=== PATIENT | female | born 1995 | race Two or more races ===

== ENCOUNTER 2024-08-27 03:19 | Emergency (ER) | payer MEDICAID, OTHER ==
[~2024-08-27] VITALS: Ht 162.6 cm; Wt 70.4 kg
[2024-08-27 04:45] LABS: Urine Bacteria FEW /hpf (None Seen); Urine Blood Negative /uL (Negative); Urine Clarity Clear (Clear); Urine Color Yellow (Yellow); Urine Mucus FEW (None Seen); Urine Protein, UAD TRACE (Negative); Urine Specific Gravity 1.035 (1.001-1.035); Urine Squamous Epithelial Cell FEW /hpf (<5); Urine Urobilinogen Normal (Negative); Urine WBC < 1 /HPF (0-5)
--- NOTE | 2024-08-27 05:45 | PRN ---
Misceleneous Note Note Note RAPID MEDICAL ASSESSMENT NOTE: [age] yo female presents right hip pain x3 months. Patient came in today because now she has pain in her left lower quadrant, right upper quadrant. She denies any significant past medical history. Physical exam: General: Awake, alert and oriented. No acute distress. Skin: Skin in warm, dry. HEENT: The head is normocephalic and atraumatic. Conjunctivae are clear without exudates or hemorrhage. Sclera is non-icteric. Neck: Normal range of motion. No JVD. Respiratory: No signs of respiratory distress. No Stridor. Abdomen: Soft, no peritoneal signs. Plan: Lab studies, right hip x-ray, pelvic ultrasound. Patient has declined pain medication at this time. Sign out to oncoming provider pending full evaluation and re-assessment. CHRIS GIRON MD Aug 27, 2024 05:45
[2024-08-27 05:59] LABS: Basophils # (auto) 0 10 ^3/uL (0-0.2); Basophils % (auto) 0.7 % (0.0-2.0); Eosinophils # (auto) 0.1 10 ^3/uL (0-0.8); Eosinophils % (auto) 1.3 % (0.0-7.0); Hematocrit 42.1 % (36.0-46.0); Hemoglobin 14.3 g/dL (12.2-16.2); Lymphocytes # (auto) 1.8 10 ^3/uL (0.4-5.4); Lymphocytes % (auto) 27.5 % (10.0-50.0); Mean Corpuscular Hemoglobin 29.4 pg (28.0-32.0); Mean Corpuscular Hgb Conc. 33.8 g/dL (32.0-36.0); Mean Corpuscular Volume 86.9 fL (80.0-100.0); Monocytes # (auto) 0.5 10 ^3/uL (0-1.3); Monocytes % (auto) 7.4 % (0.0-12.0); Neutrophils # (auto) 4.1 10 ^3/uL (1.6-8.6); Neutrophils % (auto) 63.1 % (37.0-80.0); Nucleated Red Blood Cells % 0.1 %; Platelet Count (auto) 253 10^3/uL (140-450); Red Blood Cells 4.85 10^6/uL (4.0-5.20); Red Cell Distribution Width 13.8 % (11.8-14.3); White Blood Cell 6.5 10^3/uL (4.4-10.8)
[2024-08-27 06:18] LABS: Alanine Aminotransferase 16 U/L (7-40); Alkaline Phosphatase 59 U/L (46-116); Calcium 9.8 mg/dL (8.7-10.4); Carbon Dioxide 25 mmol/L (20-31); Chloride 105 mmol/L (98-107)
[2024-08-27 06:19] LABS: Albumin 4.9 g/dL (3.2-4.8); Anion Gap 9 (5-15); Aspartate Aminotransferase 11 U/L (13-40); BUN/Creatinine Ratio 13.2 (10.0-20.0); Bilirubin, Total 0.5 mg/dL (0.2-1.0); Blood Urea Nitrogen 10 mg/dL (9-23); Glucose 105 mg/dL (74-106); Sodium 139 mmol/L (136-145); Total Protein 7.3 g/dL (5.7-8.2)
--- NOTE | 2024-08-27 06:28 | ED.PDOC ---
GI ASSESSMENT HPI Comments 29-year-old female presents with a chief complaint of pelvic pain/abdominal pain with associated soft stools x 3 months intermittently. Patient states that the sensation is pressure-like, nonradiating, and has been intermittent in timing. Patient mentions also that her stools have been softer than typical for her baseline. Patient reports that the pain began spontaneously and denies any injuries or trauma prior to onset of symptoms. Patient mentions that she has been taking Fiber supplements to attempt to relieve her symptoms. Patient denies seeing a doctor in the last 3 months for this issue. Patient endorses alcohol use, and smokes. LMP 07/26/2024. Denies any nausea, vomiting, or diarrhea. Chief Complaint: Abdominal Pain Time Seen by MD: 05:46 Reviewed Notes: Medications, Allergies Allergies: Coded Allergies: No Known Drug Allergy (Verified Allergy, Unknown, 08/27/24) Information Source: Patient Mode of Arrival: Ambulatory Timing: Months Duration: Since onset Prehospital treatment: None Quality: Other (Pressure) Vomitus: None Stool: Loose Severity: Moderate Recent: None Recent Hx of: None Pain Location: Suprapubic Associated sign and symptoms: Abdominal Pain Past Medical History PAST MEDICAL HISTORY: Denies Surgical History: Denies all surgeries [employer] History: Denies all [employer] Hx Family History Family History: Reviewed,noncontributory to illness Social History Smoker: Other Alcohol: Occasionally Drugs: Denies Drug Use Lives In: Home Constitutional: denies: chills, diaphoresis, fatigue, fever, malaise, sweats, weakness, others EENTM: denies: blurred vision, double vision, ear bleeding, ear discharge, ear drainage, ear pain, ear ringing, eye pain, eye redness, hearing loss, mouth pain, mouth swelling, nasal discharge, nose bleeding, nose congestion, nose pain, photophobia, tearing, throat pain, throat swelling, voice changes, others Respiratory: denies: cough, hemoptysis, orthopnea, SOB at rest, shortness of breath, SOB with excertion, stridor, wheezing, others Cardiovascular: denies: chest pain, dizzy spells, diaphoresis, Dyspnea on exertion, edema, irregular heart beat, left arm pain, lightheadedness, palpitations, PND, syncope, others Gastrointestinal: reports: abdominal pain; denies: abdomen distended, blood streaked bowels, constipated, diarrhea, dysphagia, difficulty swallowing, hematemesis, melena, nausea, poor appetite, poor fluid intake, rectal bleeding, rectal pain, vomiting, others Genitourinary: denies: abnormal vagina bleeding, burning, dyspareunia, dysuria, flank pain, frequency, hematuria, incontinence, pain, , vagina discharge, urgency, others Neurological: denies: dizziness, fainting, headache, left sided numbness, left sided weakness, numbness, paresthesia, pre-existing deficit, right sided numbness, right sided weakness, seizure, speech problems, tingling, tremors, weakness, others Musculoskeletal: denies: back pain, gout, joint pain, joint swelling, muscle pain, muscle stiffness, neck pain, others Integumetry: denies: bruises, change in color, change in hair/nails, dryness, laceration, lesions, lumps, rash, wounds, others Allergic/Immunocompromised: denies: Difficulty Healing, Frequent Infections, Hives, Itching, others Hematologic/Lymphatic: denies: anemia, blood clots, easy bleeding, easy bruising, swollen glands, others Endocrine: denies: excessive hunger, excessive sweating, excessive thirst, excessive urination, flushing, intolerance to cold, intolerance to heat, unexplained weight gain, unexplained weight loss, others Psychiatric: denies: anxiety, bipolar disorder, depression, hopeless, panic disorder, schizophrenia, sleepless, suicidal, others All Other Systems: Reviewed and Negative Physical Exam General Appearance: Mild Distress, Normal HEENT: Normal ENT Inspection, Pharynx Normal, TMs Normal Neck: Full Range of Motion, Non-Tender, Normal, Normal Inspection Respiratory: Chest Non-Tender, Lungs Clear, No Accessory Muscle Use, No Respiratory Distress, Normal Breath Sounds Cardiovascular: No Edema, No JVD, No Murmur, No Gallop, Normal Peripheral Pulses, Regular Rate/Rhythm Breast Exam: Deferred Gastrointestinal: No Pulsatile Mass, Normal Bowel Sounds, Soft, Tenderness (OVERLYING THE RIGHT ILLAC BONE AND UNDERNEATH THE ILLIAC BONE) Genitalia: Deferred Pelvic: Deferred Rectal: Deferred Extremities: No calf tenderness, Normal capillary refill, Normal inspection, Normal range of motion, Non-tender, No pedal edema Musculoskeletal : Apperance: Normal Neurologic: Alert, suction plate roller hand II-XII nml as Tested, No Motor Deficits, Normal Affect, Normal Mood, No Sensory Deficits Cerebellar Function: Normal Reflexes: Normal Skin: Dry, Normal Color, Warm Lymphatic: No Adenopathy Was a procedure done? Was a procedure done?: No GI differential Dx Differential Diagnosis: Constipation, Diverticular disease, Ectopic , Gastroenteritis, Ischemic Bowel, Ovarian cyst/torsion, UTI, Hypovolemia X-Ray, Labs, Meds, VS Vital Signs Date Time Temp Pulse Resp B/P (MAP) Pulse Ox O2 Delivery O2 Flow Rate FiO2 08/27/24 03:50 98.2 88 18 135/78 (97) 99 Lab Test 08/27/24 05:47 08/27/24 04:15 Range/Units White Blood Count 6.5 4.4-10.8 10^3/uL Red Blood Count 4.85 4.0-5.20 10^6/uL Hemoglobin 14.3 12.2-16.2 g/dL Hematocrit 42.1 36.0-46.0 % Mean Corpuscular Volume 86.9 80.0-100.0 fL Mean Corpuscular Hemoglobin 29.4 28.0-32.0 pg Mean Corpuscular Hemoglobin Concent 33.8 32.0-36.0 g/dL Red Cell Distribution Width 13.8 11.8-14.3 % Platelet Count 253 140-450 10^3/uL Mean Platelet Volume 9.1 6.9-10.8 fL Neutrophils (%) (Auto) 63.1 37.0-80.0 % Lymphocytes (%) (Auto) 27.5 10.0-50.0 % Monocytes (%) (Auto) 7.4 0.0-12.0 % Eosinophils (%) (Auto) 1.3 0.0-7.0 % Basophils (%) (Auto) 0.7 0.0-2.0 % Neutrophils # (Auto) 4.1 1.6-8.6 10 ^3/uL Lymphocytes # (Auto) 1.8 0.4-5.4 10 ^3/uL Monocytes # (Auto) 0.5 0-1.3 10 ^3/uL Eosinophils # (Auto) 0.1 0-0.8 10 ^3/uL Basophils # (Auto) 0 0-0.2 10 ^3/uL Nucleated Red Blood Cells 0.1 % Sodium Level 139 136-145 mmol/L Potassium Level 4.0 3.5-5.1 mmol/L Chloride Level 105 98-107 mmol/L Carbon Dioxide Level 25 20-31 mmol/L Anion Gap 9 5-15 Blood Urea Nitrogen 10 9-23 mg/dL Creatinine 0.76 0.550-1.02 mg/dL Glomerular Filtration Rate Calc 109 >90 mL/min BUN/Creatinine Ratio 13.2 10.0-20.0 Serum Glucose 105 74-106 mg/dL Lactic Acid Level 0.9 0.4-2.0 mmol/L Calcium Level 9.8 8.7-10.4 mg/dL Total Bilirubin 0.5 0.2-1.0 mg/dL Aspartate Amino Transferase (AST) 11 L 13-40 U/L Alanine Aminotransferase (ALT) 16 7-40 U/L Alkaline Phosphatase 59 46-116 U/L Total Protein 7.3 5.7-8.2 g/dL Albumin 4.9 H 3.2-4.8 g/dL Lipase 51 12-53 U/L Urine Color Yellow Yellow Urine Clarity Clear Clear Urine pH 6.0 5.0-9.0 Urine Specific [place] 1.035 1.001-1.035 Urine Protein Trace H Negative Urine Ketones Trace Negative Urine Blood Negative Negative /uL Urine Nitrite Negative Negative Urine Bilirubin Negative Negative Urine Urobilinogen Normal Negative mg/dL Urine Leukocyte Esterase Negative Negative /uL Urine RBC 2 0 - 4 /hpf Urine Microscopic WBC < 1 0-5 /HPF Urine Squamous Epithelial Cells Few <5 /hpf Urine Bacteria Few H None Seen /hpf Urine Mucus Few None Seen Urine Glucose Normal Normal mg/dL Urine Test Negative Negative PATIENT: JUNAID WANG ACCT: [id number] UNIT: [id number] : 1995 LOC: ER ROOM / BED: / AGE / SEX: 29 / F ADM STATUS: REG ER SERVICE 0539 ORDERING PHYSICIAN: CHRIS GIRON MD PROCEDURE(s): RHIP - R HIP COMPLETE XRAY REASON: Right hip pain x3 months ORDER NUMBER(s): [id number], ACCESSION NUMBER(s): [id number] CLINICAL INDICATION: Right hip pain x3 months TECHNIQUE: Frontal and lateral radiographic views of the right hip were obtained. Comparison: None FINDINGS/IMPRESSION: There is no evidence of acute fracture or dislocation. The visualized joint space is well maintained. The soft tissues are unremarkable. ATED BY: YOLIS ABURTO MD DICTATED DATE/TIME: 08/27/24705 SIGNED BY: YOLIS ABURTO MD SIGNED DATE/TIME: 08/27/24705 PATIENT: JUNAID WANG ACCT: [id number] UNIT: [id number] : 1995 LOC: ER ROOM / BED: / AGE / SEX: 29 / F ADM STATUS: REG ER SERVICE 8 ORDERING PHYSICIAN: SHIRA OCONNOR MD PROCEDURE(s): ABPL - CT AB PEL WO CON-NO ORAL OR IV REASON: rlq abd pain ORDER NUMBER(s): [id number], ACCESSION NUMBER(s): [id number] EXAM: CT Abdomen and Pelvis Without Intravenous Contrast CLINICAL INDICATION: rlq abd pain TECHNIQUE: Axial computed tomography images of the abdomen and pelvis without intravenous contrast. This CT exam was performed using one or more of the following dose reduction techniques: automated exposure control, adjustment of the mA and/or kV according to patient size, and/or use of iterative reconstru ction technique. CONTRAST: COMPARISON: None FINDINGS: LUNG BASES: Unremarkable. No mass. No consolidation. MEDIASTINUM: Small esophageal hiatal hernia. ABDOMEN: LIVER: Fatty liver. GALLBLADDER AND BILE DUCTS: Unremarkable. No calcified stones. No ductal dilation. PANCREAS: Unremarkable. No ductal dilation. SPLEEN: Unremarkable. No splenomegaly. ADRENALS: Unremarkable. No mass. KIDNEYS AND URETERS: Unremarkable. No stones within either kidney. No hydronephrosis. STOMACH AND BOWEL: Fecal retention in the colon consistent with constipation. No obstruction. No mucosal thickening. PELVIS: APPENDIX: Normal appendix. BLADDER: Unremarkable. No stones. REPRODUCTIVE: Unremarkable as visualized. ABDOMEN and PELVIS: INTRAPERITONEAL SPACE: Unremarkable. No free air. No significant fluid collection. BONES/JOINTS: No acute fracture. No dislocation. SOFT TISSUES: Umbilical hernia containing fat. VASCULATURE: Unremarkable. No abdominal aortic aneurysm. LYMPH NODES: Unremarkable. No enlarged lymph nodes. OTHER FINDINGS: . . . . .. IMPRESSION: 1. Normal appendix. 2. Small esophageal hiatal hernia. 3. Fecal retention in the colon consistent with constipation. 4. No obstructive uropathy. 5. Umbilical hernia containing fat. ATED BY: MIGUEL ÁNGEL BURNS MD DICTATED DATE/TIME: 08/27/24710 SIGNED BY: MIGUEL ÁNGEL BURNS MD SIGNED DATE/TIME: 08/27/24710 PATIENT: JUNAID WANG ACCT: [id number] UNIT: [id number] : 1995 LOC: ER ROOM / BED: / AGE / SEX: 29 / F ADM STATUS: REG ER SERVICE 8 ORDERING PHYSICIAN: SHIRA OCONNOR MD PROCEDURE(s): PELUS - PELVIC REASON: ro ovarian torsion/pelvic pain ORDER NUMBER(s): [id number], ACCESSION NUMBER(s): [id number] EXAM: US Pelvis Transabdominal and Transvaginal, Complete CLINICAL INDICATION: ro ovarian torsion/pelvic pain TECHNIQUE: Real-time complete transabdominal and transvaginal pelvic ultrasound with image documentation. Transvaginal imaging was used for better evaluation of the endometrium and adnexa. COMPARISON: None FINDINGS: UTERUS/CERVIX: Unremarkable. No myometrial mass. The uterus measures 7.3 x 5.5 x 4.2 cm. The endometrial stripe measures 0.6 cm in thickness. RIGHT OVARY: Unremarkable. Normal blood flow. The right ovary measures 3.2 x 2.5 x 2.4 cm. LEFT OVARY: Unremarkable. Normal blood flow. The left ovary measures 2.1 x 1.9 x 2.0 cm. FREE FLUID: No free fluid. BLADDER: Unremarkable as visualized. Wall is normal thickness for degree of distention. OTHER FINDINGS: . . . . .. IMPRESSION: No acute findings in the pelvis. ATED BY: MIGUEL ÁNGEL BURNS MD DICTATED DATE/TIME: 08/27/24727 SIGNED BY: MIGUEL ÁNGEL BURNS MD SIGNED DATE/TIME: 08/27/24727 21-year-old female reports right lower quadrant pain that she has had for 3 months but worse in the last 1 week. She states it is also associated with loose stools. Denies any diet changes. On my examination she is tender near the right hip bone and underneath it. Considered possible ovarian torsion however ultrasound of the pelvis demonstrates good flow to both ovaries. No evidence of cyst. Also considered possible mass/cancer, no large mass seen to the abdomen based on CT abdomen pelvis. No abnormality seen on right hip x- rays. CT abdomen pelvis demonstrates evidence of esophageal hiatal hernia and constipation only. I discussed with the patient that there may be other tests that are needed if this continues. Labs today including a CBC CMP UA are unremarkable. She is not today. She may require colonoscopy and further evaluation with a CT with contrast. I have given her a copy of all reports today. She is to follow up with the PCP in 2-3 days and return to ER if symptoms worsen or persist. Time of 1ST Reevaluation: 06:54 Reevaluation 1ST: Unchanged Time of 2ND Reevaluation: 08:20 Reevaluation 2ND: Unchanged Patient Education/Counseling: Diagnosis, Treatment, Prognosis Family Education/Counseling: Diagnosis, Treatment, Prognosis Departure 1 Departure Time of Disposition: 08:24 Impression: Primary Impression: RLQ abdominal pain Additional Impressions: Constipation Qualified Codes: K59.00 - Constipation, unspecified Esophageal hiatal hernia Disposition: 01 HOME / SELF CARE / HOMELESS Condition: Stable Additional Instructions: PATIENT: JUNAID WANG ACCT: [id number] UNIT: [id number] : 1995 LOC: ER ROOM / BED: / AGE / SEX: 29 / F ADM STATUS: REG ER SERVICE 0539 ORDERING PHYSICIAN: CHRIS GIRON MD PROCEDURE(s): RHIP - R HIP COMPLETE XRAY REASON: Right hip pain x3 months ORDER NUMBER(s): [id number], ACCESSION NUMBER(s): [id number] CLINICAL INDICATION: Right hip pain x3 months TECHNIQUE: Frontal and lateral radiographic views of the right hip were obtained. Comparison: None FINDINGS/IMPRESSION: There is no evidence of acute fracture or dislocation. The visualized joint space is well maintained. The soft tissues are unremarkable. ATED BY: YOLIS ABURTO MD DICTATED DATE/TIME: 08/27/24 0706 SIGNED BY: YOLIS ABURTO MD SIGNED DATE/TIME: 08/27/24705 PATIENT: JUNAID WANG ACCT: [id number] UNIT: [id number] : 1995 LOC: ER ROOM / BED: / AGE / SEX: 29 / F ADM STATUS: REG ER SERVICE 0629 ORDERING PHYSICIAN: SHIRA OCONNOR MD PROCEDURE(s): ABPL - CT AB PEL WO CON-NO ORAL OR IV REASON: rlq abd pain ORDER NUMBER(s): [id number], ACCESSION NUMBER(s): [id number] EXAM: CT Abdomen and Pelvis Without Intravenous Contrast CLINICAL INDICATION: rlq abd pain TECHNIQUE: Axial computed tomography images of the abdomen and pelvis without intravenous contrast. This CT exam was performed using one or more of the following dose reduction techniques: automated exposure control, adjustment of the mA and/or kV according to patient size, and/or use of iterative reconstruction technique. CONTRAST: COMPARISON: None FINDINGS: LUNG BASES: Unremarkable. No mass. No consolidation. MEDIASTINUM: Small esophageal hiatal hernia. ABDOMEN: LIVER: Fatty liver. GALLBLADDER AND BILE DUCTS: Unremarkable. No calcified stones. No ductal dilation. PANCREAS: Unremarkable. No ductal dilation. SPLEEN: Unremarkable. No splenomegaly. ADRENALS: Unremarkable. No mass. KIDNEYS AND URETERS: Unremarkable. No stones within either kidney. No hydronephrosis. STOMACH AND BOWEL: Fecal retention in the colon consistent with constipation. No obstruction. No mucosal thickening. PELVIS: APPENDIX: Normal appendix. BLADDER: Unremarkable. No stones. REPRODUCTIVE: Unremarkable as visualized. ABDOMEN and PELVIS: INTRAPERITONEAL SPACE: Unremarkable. No free air. No significant fluid collection. BONES/JOINTS: No acute fracture. No dislocation. SOFT TISSUES: Umbilical hernia containing fat. VASCULATURE: Unremarkable. No abdominal aortic aneurysm. LYMPH NODES: Unremarkable. No enlarged lymph nodes. OTHER FINDINGS: . . . . .. IMPRESSION: 1. Normal appendix. 2. Small esophageal hiatal hernia. 3. Fecal retention in the colon consistent with constipation. 4. No obstructive uropathy. 5. Umbilical hernia containing fat. ATED BY: MIGUEL ÁNGEL BURNS MD DICTATED DATE/TIME: 08/27/24 07 SIGNED BY: MIGUEL ÁNGEL BURNS MD SIGNED DATE/TIME: 08/27/24710 PATIENT: JUNAID WANG ACCT: [id number] UNIT: [id number] : 1995 LOC: ER ROOM / BED: / AGE / SEX: 29 / F ADM STATUS: REG ER SERVICE 8 ORDERING PHYSICIAN: SHIRA OCONNOR MD PROCEDURE(s): PELUS - PELVIC REASON: ro ovarian torsion/pelvic pain ORDER NUMBER(s): [id number], ACCESSION NUMBER(s): [id number] EXAM: US Pelvis Transabdominal and Transvaginal, Complete CLINICAL INDICATION: ro ovarian torsion/pelvic pain TECHNIQUE: Real-time complete transabdominal and transvaginal pelvic ultrasound with image documentation. Transvaginal imaging was used for better evaluation of the endometrium and adnexa. COMPARISON: None FINDINGS: UTERUS/CERVIX: Unremarkable. No myometrial mass. The uterus measures 7.3 x 5.5 x 4.2 cm. The endometrial stripe measures 0.6 cm in thickness. RIGHT OVARY: Unremarkable. Normal blood flow. The right ovary measures 3.2 x 2.5 x 2.4 cm. LEFT OVARY: Unremarkable. Normal blood flow. The left ovary measures 2.1 x 1.9 x 2.0 cm. FREE FLUID: No free fluid. BLADDER: Unremarkable as visualized. Wall is normal thickness for degree of distention. OTHER FINDINGS: . . . . .. IMPRESSION: No acute findings in the pelvis. ATED BY: MIGUEL ÁNGEL BURNS MD DICTATED DATE/TIME: 08/27/24727 SIGNED BY: MIGUEL ÁNGEL BURNS MD SIGNED DATE/TIME: 08/27/24727 Discharged With: Self, Spouse Critical Care Note Critical Care Time?: No Stability Stability form required: No I personally scribed for SHIRA OCONNOR MD ([email or web address]) on 08/27/24 at 07:34. Electronically submitted by Fish Alonzo ([email or web address]). I personally scribed for SHIRA OCONNOR MD ([email or web address]) on 08/27/24 at 07:35. Electronically submitted by Fish Alonzo ([email or web address]). I personally scribed for SHIRA OCONNOR MD ([email or web address]) on 08/27/24 at 08:08. Electronically submitted by Fish Alonzo ([email or web address]). I personally scribed for SHIRA OCONNOR MD ([email or web address]) on 08/27/24 at 08:09. Electronically submitted by Fish Alonzo ([email or web address]). SHIRA OCONNOR MD Aug 27, 2024 06:28
[2024-08-27 06:29] LABS: Lipase 51 U/L (12-53)
--- NOTE | 2024-08-27 07:09 | DVH ---
CLINICAL INDICATION: Right hip pain x3 months TECHNIQUE: Frontal and lateral radiographic views of the right hip were obtained. Comparison: None FINDINGS/IMPRESSION: There is no evidence of acute fracture or dislocation. The visualized joint space is well maintained. The soft tissues are unremarkable.
--- NOTE | 2024-08-27 07:13 | DVH ---
EXAM: CT Abdomen and Pelvis Without Intravenous Contrast CLINICAL INDICATION: rlq abd pain TECHNIQUE: Axial computed tomography images of the abdomen and pelvis without intravenous contrast. This CT exam was performed using one or more of the following dose reduction techniques: automated exposure control, adjustment of the mA and/or kV according to patient size, and/or use of iterative r econstruction technique. CONTRAST: COMPARISON: None FINDINGS: LUNG BASES: Unremarkable. No mass. No consolidation. MEDIASTINUM: Small esophageal hiatal hernia. ABDOMEN: LIVER: Fatty liver. GALLBLADDER AND BILE DUCTS: Unremarkable. No calcified stones. No ductal dilation. PANCREAS: Unremarkable. No ductal dilation. SPLEEN: Unremarkable. No splenomegaly. ADRENALS: Unremarkable. No mass. KIDNEYS AND URETERS: Unremarkable. No stones within either kidney. No hydronephrosis. STOMACH AND BOWEL: Fecal retention in the colon consistent with constipation. No obstruction. No mucosal thickening. PELVIS: APPENDIX: Normal appendix. BLADDER: Unremarkable. No stones. REPRODUCTIVE: Unremarkable as visualized. ABDOMEN and PELVIS: INTRAPERITONEAL SPACE: Unremarkable. No free air. No significant fluid collection. BONES/JOINTS: No acute fracture. No dislocation. SOFT TISSUES: Umbilical hernia containing fat. VASCULATURE: Unremarkable. No abdominal aortic aneurysm. LYMPH NODES: Unremarkable. No enlarged lymph nodes. OTHER FINDINGS: . . . . .. IMPRESSION: 1. Normal appendix. 2. Small esophageal hiatal hernia. 3. Fecal retention in the colon consistent with constipation. 4. No obstructive uropathy. 5. Umbilical hernia containing fat.
--- NOTE | 2024-08-27 07:31 | DVH ---
EXAM: US Pelvis Transabdominal and Transvaginal, Complete CLINICAL INDICATION: ro ovarian torsion/pelvic pain TECHNIQUE: Real-time complete transabdominal and transvaginal pelvic ultrasound with image documenta tion. Transvaginal imaging was used for better evaluation of the endometrium and adnexa. COMPARISON: None FINDINGS: UTERUS/CERVIX: Unremarkable. No myometrial mass. The uterus measures 7.3 x 5.5 x 4.2 cm. The end ometrial stripe measures 0.6 cm in thickness. RIGHT OVARY: Unremarkable. Normal blood flow. The right ovary measures 3.2 x 2.5 x 2.4 cm. LEFT OVARY: Unremarkable. Normal blood flow. The left ovary measures 2.1 x 1.9 x 2.0 cm. FREE FLUID: No free fluid. BLADDER: Unremarkable as visualized. Wall is normal thickness for degree of distention. OTHER FINDINGS: . . . . .. IMPRESSION: No acute findings in the pelvis.
[2024-08-27 08:42] VITALS: BP 126/64; PULSE 70; RESP 16; TEMP 98.3; O2SAT 97
== END 2024-08-27 08:46 | disposition home or self-care (01) ==
LOC: ER 03:19
DX: K44.9 Diaphragmatic hernia without obstruction or gangrene (principal); K59.00 Constipation, unspecified; R10.31 Right lower quadrant pain; F17.200 Nicotine dependence, unspecified, uncomplicated
CPT/HCPCS: 36415; 73502; 74176; 76856; 80053; 81001; 81025; 83605; 83690; 85025